=== PATIENT | female | born 1990 | race Caucasian/White ===

== ENCOUNTER 2017-08-31 16:17 | Emergency (ER) | payer MEDICAID, OTHER ==
[~2017-08-31] VITALS: Wt 63.0 kg
--- NOTE | 2017-08-31 18:57 | RADRPT ---
PROCEDURE: US OB. CLINICAL INDICATION: Vaginal bleeding. TECHNIQUE: Multiple sonographic images of the pelvis were obtained. Transabdominal and transvagin al views of the pelvis are available for review. The images were reviewed on a PACS workstation. COMPARISON: No prior studies are available for comparison. FINDINGS: A single live intrauterine is identified. heart rate is 163 beats per minute. The cr own-rump length is 21 mm which corresponds to 8 weeks 5 days gestational age by ultrasound criteria. Estimated date of delivery is 04/15/2018 by crown rump length.. No subchorionic hemorrhage is juan ntified. The ovaries are unremarkable. There is no adnexal mass or free fluid. IMPRESSION: 1. Single live intrauterine gestation of approximately 8 weeks 5 days by crown rump length.. 2. No subchorionic hemorrhage. RPTAT: HMVK .Gabriel Serna MD, Date Time Electronically viewed and signed by .Gabriel Serna MD, on 08/31/2017 18:56 .K/
--- NOTE | 2017-08-31 19:38 | ERD ---
ER Documentation Chief Complaint Chief Complaint VAG BLEEDING, POSITIVE PG TEST AT HOME HPI 26-year-old female presents emergency department with vaginal bleeding while . Patient states 4 days ago she took a urine test at home which was positive. Patient states she then went to her primary clinic who also did a urine test and revealed positive test. Patient states 3 days ago she developed mild pelvic cramping and light pink spotting. Patient's last mental period was July 19, 2017. Patient is a A0. 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 No abdominal pain, nausea, vomiting or diarrhea. No fevers or chills. ROS All systems reviewed and are negative except as per history of present illness. Medications Home Meds No Active Prescriptions or Reported Meds Allergies Allergies: Coded Allergies: No Known Drug Allergy (Verified Allergy, Unknown, 01/15/15) PMhx/Soc History of Surgery: No Anesthesia Reaction: No Hx Neurological Disorder: No Hx Respiratory Disorders: No Hx Cardiac Disorders: No Hx Psychiatric Problems: No Hx Miscellaneous Medical Probl: No Hx Alcohol Use: No Hx Substance Use: No Hx Tobacco Use: No Smoking Status: Never smoker Physical Exam Vitals Vital Signs Date Time Temp Pulse Resp B/P Pulse Ox O2 Delivery O2 Flow Rate FiO2 08/31/17 20:30 98.5 95 16 126/66 99 Room Air 08/31/17 16:24 98.5 95 18 116/62 98 Physical Exam Const: No acute distress, alert Head: Atraumatic Eyes: Normal Conjunctiva ENT: Normal External Ears, Nose and Mouth. Neck: Full range of motion..~ No meningismus. Resp: Clear to auscultation bilaterally Cardio: Regular rate and rhythm, no murmurs Abd: Soft, non tender, non distended. Normal bowel sounds Skin: No petechiae or rashes Back: No midline or flank tenderness Ext: No cyanosis, or edema Neur: Awake and alert Psych: Normal Mood and Affect Result Diagram: 08/31/17 1820 Results 24 hrs Laboratory Tests Test 08/31/17 18:20 08/31/17 19:50 White Blood Count 10.210^3/ul Red Blood Count 4.3210^6/ul Hemoglobin 12.5g/dl Hematocrit 37.5% Mean Corpuscular Volume 86.8fl Mean Corpuscular Hemoglobin 28.9pg Mean Corpuscular Hemoglobin Concent 33.3g/dl Red Cell Distribution Width 13.1% Platelet Count 54913^3/UL Mean Platelet Volume 9.2fl Neutrophils % 66.9% Lymphocytes % 21.2% Monocytes % 8.6% Eosinophils % 2.6% Basophils % 0.4% Nucleated Red Blood Cells % 0.0/100WBC Neutrophils # 6.810^3/ul Lymphocytes # 2.210^3/ul Monocytes # 0.910^3/ul Eosinophils # 0.310^3/ul Basophils # 0.010^3/ul Nucleated Red Blood Cells # 0.010^3/ul Beta HCG, Quantitative 682614.0mIU/ml Bedside Urine pH (LAB) 5.5 Bedside Urine Protein (LAB) Trace Bedside Urine Glucose (UA) Negative Bedside Urine Ketones (LAB) 1+ Bedside Urine Blood Trace-intact Bedside Urine Nitrite (LAB) Negative Bedside Urine Leukocyte Esterase (L Negative Procedures/MDM [place] [address] Radiology Main Line: [phone] DIAGNOSTIC IMAGING REPORT Patient: ENRIKE CABELLO : 1990 Age: 26 Sex: F MR #: [id number] DOS: 08/31/17 1802 Ordering MD: TANNER ADAMS NP Location: [facility] Room/Bed: PROCEDURE: US OB. CLINICAL INDICATION: Vaginal bleeding. TECHNIQUE: Multiple sonographic images of the pelvis were obtained. Transabdominal and transvaginal views of the pelvis are available for review. The images were reviewed on a PACS workstation. COMPARISON: No prior studies are available for comparison. FINDINGS: A single live intrauterine is identified. heart rate is 163 beats per minute. The crown-rump length is 21 mm which corresponds to 8 weeks 5 days gestational age by ultrasound criteria. Estimated date of delivery is by crown rump length.. No subchorionic hemorrhage is identified. The ovaries are unremarkable. There is no adnexal mass or free fluid. IMPRESSION: 1. Single live intrauterine gestation of approximately 8 weeks 5 days by crown rump length.. 2. No subchorionic hemorrhage. MDM: This is a 26-year-old female presenting to emergency department with vaginal bleeding while . Patient reports mild pelvic cramping with light pink spotting. CBC shows no significant anemia or infection. Beta-hCG is 106,100. Urine dip is negative for infection. OB ultrasound reviewed by radiologist as single live intrauterine gestation of approximately 8 weeks 5 days by crown-rump length. No subchorionic hemorrhage. Patient's diagnosis is vaginal bleeding while . Low suspicion for demise. Patient is appropriate for outpatient management and instructed patient to follow up with [facility] in the next 2-3 days for reassessment and additional management. Return to ED for any new or worsening symptoms. Patient verbalizes understanding. All questions answered at discharge. Departure Diagnosis: Primary Impression: Vaginal bleeding in Condition: Stable TANNER HANKINS NP Aug 31, 2017 19:38
--- NOTE | 2017-08-31 19:38 | ERD ---
ER Documentation Chief Complaint Chief Complaint VAG BLEEDING, POSITIVE PG TEST AT HOME HPI 26-year-old female presents emergency department with vaginal bleeding while . Patient states 4 days ago she took a urine test at home which was positive. Patient states she then went to her primary clinic who also did a urine test and revealed positive test. Patient states 3 days ago she developed mild pelvic cramping and light pink spotting. Patient's last mental period was July 19, 2017. Patient is a A0. 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 No abdominal pain, nausea, vomiting or diarrhea. No fevers or chills. ROS All systems reviewed and are negative except as per history of present illness. Medications Home Meds No Active Prescriptions or Reported Meds Allergies Allergies: Coded Allergies: No Known Drug Allergy (Verified Allergy, Unknown, 01/15/15) PMhx/Soc History of Surgery: No Anesthesia Reaction: No Hx Neurological Disorder: No Hx Respiratory Disorders: No Hx Cardiac Disorders: No Hx Psychiatric Problems: No Hx Miscellaneous Medical Probl: No Hx Alcohol Use: No Hx Substance Use: No Hx Tobacco Use: No Smoking Status: Never smoker Physical Exam Vitals Vital Signs Date Time Temp Pulse Resp B/P Pulse Ox O2 Delivery O2 Flow Rate FiO2 08/31/17 20:30 98.5 95 16 126/66 99 Room Air 08/31/17 16:24 98.5 95 18 116/62 98 Physical Exam Const: No acute distress, alert Head: Atraumatic Eyes: Normal Conjunctiva ENT: Normal External Ears, Nose and Mouth. Neck: Full range of motion..~ No meningismus. Resp: Clear to auscultation bilaterally Cardio: Regular rate and rhythm, no murmurs Abd: Soft, non tender, non distended. Normal bowel sounds Skin: No petechiae or rashes Back: No midline or flank tenderness Ext: No cyanosis, or edema Neur: Awake and alert Psych: Normal Mood and Affect Result Diagram: 08/31/17 1820 Results 24 hrs Laboratory Tests Test 08/31/17 18:20 08/31/17 19:50 White Blood Count 10.210^3/ul Red Blood Count 4.3210^6/ul Hemoglobin 12.5g/dl Hematocrit 37.5% Mean Corpuscular Volume 86.8fl Mean Corpuscular Hemoglobin 28.9pg Mean Corpuscular Hemoglobin Concent 33.3g/dl Red Cell Distribution Width 13.1% Platelet Count 17186^3/UL Mean Platelet Volume 9.2fl Neutrophils % 66.9% Lymphocytes % 21.2% Monocytes % 8.6% Eosinophils % 2.6% Basophils % 0.4% Nucleated Red Blood Cells % 0.0/100WBC Neutrophils # 6.810^3/ul Lymphocytes # 2.210^3/ul Monocytes # 0.910^3/ul Eosinophils # 0.310^3/ul Basophils # 0.010^3/ul Nucleated Red Blood Cells # 0.010^3/ul Beta HCG, Quantitative 385379.0mIU/ml Bedside Urine pH (LAB) 5.5 Bedside Urine Protein (LAB) Trace Bedside Urine Glucose (UA) Negative Bedside Urine Ketones (LAB) 1+ Bedside Urine Blood Trace-intact Bedside Urine Nitrite (LAB) Negative Bedside Urine Leukocyte Esterase (L Negative Procedures/MDM [place] [address] Radiology Main Line: [phone] DIAGNOSTIC IMAGING REPORT Patient: ENRIKE CABELLO : 1990 Age: 26 Sex: F MR #: [id number] DOS: 08/31/17 1802 Ordering MD: TANNER ADAMS NP Location: [facility] Room/Bed: PROCEDURE: US OB. CLINICAL INDICATION: Vaginal bleeding. TECHNIQUE: Multiple sonographic images of the pelvis were obtained. Transabdominal and transvaginal views of the pelvis are available for review. The images were reviewed on a PACS workstation. COMPARISON: No prior studies are available for comparison. FINDINGS: A single live intrauterine is identified. heart rate is 163 beats per minute. The crown-rump length is 21 mm which corresponds to 8 weeks 5 days gestational age by ultrasound criteria. Estimated date of delivery is by crown rump length.. No subchorionic hemorrhage is identified. The ovaries are unremarkable. There is no adnexal mass or free fluid. IMPRESSION: 1. Single live intrauterine gestation of approximately 8 weeks 5 days by crown rump length.. 2. No subchorionic hemorrhage. MDM: This is a 26-year-old female presenting to emergency department with vaginal bleeding while . Patient reports mild pelvic cramping with light pink spotting. CBC shows no significant anemia or infection. Beta-hCG is 106,100. Urine dip is negative for infection. OB ultrasound reviewed by radiologist as single live intrauterine gestation of approximately 8 weeks 5 days by crown-rump length. No subchorionic hemorrhage. Patient's diagnosis is vaginal bleeding while . Low suspicion for demise. Patient is appropriate for outpatient management and instructed patient to follow up with [facility] in the next 2-3 days for reassessment and additional management. Return to ED for any new or worsening symptoms. Patient verbalizes understanding. All questions answered at discharge. Departure Diagnosis: Primary Impression: Vaginal bleeding in Condition: Stable TANNER HANKINS NP Aug 31, 2017 19:38
--- NOTE | 2017-08-31 19:38 | ERD ---
ER Documentation Chief Complaint Chief Complaint VAG BLEEDING, POSITIVE PG TEST AT HOME HPI 26-year-old female presents emergency department with vaginal bleeding while . Patient states 4 days ago she took a urine test at home which was positive. Patient states she then went to her primary clinic who also did a urine test and revealed positive test. Patient states 3 days ago she developed mild pelvic cramping and light pink spotting. Patient's last mental period was July 19, 2017. Patient is a A0. 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 No abdominal pain, nausea, vomiting or diarrhea. No fevers or chills. ROS All systems reviewed and are negative except as per history of present illness. Medications Home Meds No Active Prescriptions or Reported Meds Allergies Allergies: Coded Allergies: No Known Drug Allergy (Verified Allergy, Unknown, 01/15/15) PMhx/Soc History of Surgery: No Anesthesia Reaction: No Hx Neurological Disorder: No Hx Respiratory Disorders: No Hx Cardiac Disorders: No Hx Psychiatric Problems: No Hx Miscellaneous Medical Probl: No Hx Alcohol Use: No Hx Substance Use: No Hx Tobacco Use: No Smoking Status: Never smoker Physical Exam Vitals Vital Signs Date Time Temp Pulse Resp B/P Pulse Ox O2 Delivery O2 Flow Rate FiO2 08/31/17 20:30 98.5 95 16 126/66 99 Room Air 08/31/17 16:24 98.5 95 18 116/62 98 Physical Exam Const: No acute distress, alert Head: Atraumatic Eyes: Normal Conjunctiva ENT: Normal External Ears, Nose and Mouth. Neck: Full range of motion..~ No meningismus. Resp: Clear to auscultation bilaterally Cardio: Regular rate and rhythm, no murmurs Abd: Soft, non tender, non distended. Normal bowel sounds Skin: No petechiae or rashes Back: No midline or flank tenderness Ext: No cyanosis, or edema Neur: Awake and alert Psych: Normal Mood and Affect Result Diagram: 08/31/17 1820 Results 24 hrs Laboratory Tests Test 08/31/17 18:20 08/31/17 19:50 White Blood Count 10.210^3/ul Red Blood Count 4.3210^6/ul Hemoglobin 12.5g/dl Hematocrit 37.5% Mean Corpuscular Volume 86.8fl Mean Corpuscular Hemoglobin 28.9pg Mean Corpuscular Hemoglobin Concent 33.3g/dl Red Cell Distribution Width 13.1% Platelet Count 32143^3/UL Mean Platelet Volume 9.2fl Neutrophils % 66.9% Lymphocytes % 21.2% Monocytes % 8.6% Eosinophils % 2.6% Basophils % 0.4% Nucleated Red Blood Cells % 0.0/100WBC Neutrophils # 6.810^3/ul Lymphocytes # 2.210^3/ul Monocytes # 0.910^3/ul Eosinophils # 0.310^3/ul Basophils # 0.010^3/ul Nucleated Red Blood Cells # 0.010^3/ul Beta HCG, Quantitative 313040.0mIU/ml Bedside Urine pH (LAB) 5.5 Bedside Urine Protein (LAB) Trace Bedside Urine Glucose (UA) Negative Bedside Urine Ketones (LAB) 1+ Bedside Urine Blood Trace-intact Bedside Urine Nitrite (LAB) Negative Bedside Urine Leukocyte Esterase (L Negative Procedures/MDM [place] [address] Radiology Main Line: [phone] DIAGNOSTIC IMAGING REPORT Patient: ENRIKE CABELLO : 1990 Age: 26 Sex: F MR #: [id number] DOS: 08/31/17 1802 Ordering MD: TANNER ADAMS NP Location: [facility] Room/Bed: PROCEDURE: US OB. CLINICAL INDICATION: Vaginal bleeding. TECHNIQUE: Multiple sonographic images of the pelvis were obtained. Transabdominal and transvaginal views of the pelvis are available for review. The images were reviewed on a PACS workstation. COMPARISON: No prior studies are available for comparison. FINDINGS: A single live intrauterine is identified. heart rate is 163 beats per minute. The crown-rump length is 21 mm which corresponds to 8 weeks 5 days gestational age by ultrasound criteria. Estimated date of delivery is by crown rump length.. No subchorionic hemorrhage is identified. The ovaries are unremarkable. There is no adnexal mass or free fluid. IMPRESSION: 1. Single live intrauterine gestation of approximately 8 weeks 5 days by crown rump length.. 2. No subchorionic hemorrhage. MDM: This is a 26-year-old female presenting to emergency department with vaginal bleeding while . Patient reports mild pelvic cramping with light pink spotting. CBC shows no significant anemia or infection. Beta-hCG is 106,100. Urine dip is negative for infection. OB ultrasound reviewed by radiologist as single live intrauterine gestation of approximately 8 weeks 5 days by crown-rump length. No subchorionic hemorrhage. Patient's diagnosis is vaginal bleeding while . Low suspicion for demise. Patient is appropriate for outpatient management and instructed patient to follow up with [facility] in the next 2-3 days for reassessment and additional management. Return to ED for any new or worsening symptoms. Patient verbalizes understanding. All questions answered at discharge. Departure Diagnosis: Primary Impression: Vaginal bleeding in Condition: Stable TANNER HANKINS NP Aug 31, 2017 19:38
[2017-08-31 20:30] VITALS: BP 126/66; PULSE 95; RESP 16; TEMP 98.5
== END 2017-08-31 20:30 | disposition home or self-care (01) ==
LOC: FTE 16:17
DX: O20.9 Hemorrhage in early pregnancy, unspecified (principal); R10.2 Pelvic and perineal pain; Z3A.08 8 weeks gestation of pregnancy
CPT/HCPCS: 76801; 76817; 81003; 84702; 85025; 86900; 86901; Z7502

== ENCOUNTER 2017-12-16 22:26 | Outpatient (CLI) | END 2017-12-17 00:30 | disposition home or self-care (01) ==

== ENCOUNTER 2018-01-27 01:15 | Inpatient (IN) | END 2018-01-27 13:45 | disposition home or self-care (01) | DRG 780 ==

== ENCOUNTER 2018-01-28 09:57 | Outpatient (CLI) | END 2018-01-28 12:25 | disposition home or self-care (01) ==

== ENCOUNTER 2018-02-13 11:18 | Outpatient (CLI) | END 2018-02-13 15:30 | disposition home or self-care (01) ==

== ENCOUNTER 2018-02-23 13:39 | Outpatient (CLI) | END 2018-02-23 16:00 | disposition home or self-care (01) ==

== ENCOUNTER 2018-03-12 02:20 | Inpatient (IN) | END 2018-03-15 18:05 | disposition home or self-care (01) | DRG 766 ==